=== PATIENT | male | born 1950 | race Caucasian/White ===

== ENCOUNTER 2022-11-10 13:56 | Emergency (ER) | payer OTHER ==
[2022-11-10] MEDS ORDERED: AVALIDE 150-12.1 TAB (15:01)
[2022-11-10] MEDS ORDERED: EZALLOR SPRINKL10 MG (15:02)
[2022-11-10] MEDS ORDERED: AMOX/K CLAV875 M1 PO (17:41)
[2022-11-10 18:14] VITALS: BP 149/79
== END 2022-11-10 18:15 | disposition home or self-care (01) | DRG 605 ==
LOC: ED 13:56
DX: S61.210A Laceration without foreign body of right index finger without damage to nail, initial encounter (principal); L08.9 Local infection of the skin and subcutaneous tissue, unspecified; W27.0XXA Contact with workbench tool, initial encounter